=== PATIENT | female | born 1960 | race Caucasian/White ===

== ENCOUNTER 2023-02-24 18:01 | Emergency (ER) | payer OTHER ==
[2023-02-24 18:44] LABS: #Basophils 0.1 10x3/uL (0.0-0.2); #Eosinphils 0.2 10x3/uL (0.0-0.5); #Monocytes 0.6 10x3/uL (0.0-1.1); #Neutrophils 2.9 10x3/uL (1.5-8.4); %Basophils 0.7 % (0.0-2.0); %Eosinophils 2.3 % (0.0-6.0); %Lymphocytes 47.6 % (18.0-47.0); %Monocytes 8.2 % (0.0-10.0); %Neutrophils 40.9 % (40.0-75.0); Hematocrit 38.1 % (34.9-44.5); Hemoglobin 13.6 g/dL (12.0-15.5); Mean Corpuscular HGB CONC 35.7 g/dL (32.0-36.0); Mean Corpuscular Hemoglobin 31.5 pg (27.0-33.0); Mean Corpuscular Volume 88.2 fl (81.6-98.3); Mean Platelet Volume 9.4 fl (7.4-10.4); Platelet Count 253 10x3/uL (150-450); RBC Distribution Width 12.2 % (11.5-14.5); Red Blood Cell (RBC) Count 4.32 10x6/uL (3.90-5.03)
[2023-02-24 19:05] LABS: ALT (SGPT) 17 U/L (8-55); AST (SGOT) 16 U/L (5-34); Albumin 4.1 g/dL (3.4-4.8); Alkaline Phosphatase 88 U/L (40-110); Anion Gap 15 mmol/L (10-20); BUN (Urea Nitrogen) 27 mg/dL (9.8-20.1); Bilirubin, Total 0.3 mg/dL (0.2-1.2); Calc. Creatinine Clearance 0 mL/min (70-130); Calcium 8.9 mg/dL (7.8-10.44); Carbon Dioxide 23 mmol/L (23-31); Chloride 108 mmol/L (98-107); Estimated GFR 59; Globulin 2.2 g/dL (2.4-3.5); Glucose 73 mg/dL (80-115); Potassium 3.5 mmol/L (3.5-5.1); Protein, Total 6.3 g/dL (5.8-8.1); Sodium 142 mmol/L (136-145)
[2023-02-24 19:12] LABS: Troponin I Less than 0.010 ng/mL (< 0.028)
[2023-02-24] MEDS ORDERED: Dexamethasone 10 MG/ML VIAL ONE (19:43)
== END 2023-02-24 20:25 | disposition home or self-care (01) ==
LOC: CSHERS 18:01
DX: R07.9 Chest pain, unspecified (principal); J45.909 Unspecified asthma, uncomplicated; I10 Essential (primary) hypertension
CPT/HCPCS: 71045; 80053; 84484; 85025; 93005; 96374; J1100

== ENCOUNTER 2023-05-19 17:48 | Emergency (ER) | payer OTHER | END 2023-05-19 21:13 | disposition home or self-care (01) | LOC: CSHERS 17:48 | DX: L52 Erythema nodosum (principal); I10 Essential (primary) hypertension ==

== ENCOUNTER 2023-10-11 18:25 | Emergency (ER) | payer OTHER ==
[2023-10-11 19:29] LABS: Bilirubin Neg (Negative); Blood, Urine Negative (Negative); Clarity Clear (Clear); Glucose, Urine (Dipstick) Normal (Negative); Ketone, Urine Negative (Negative); Leukocyte Negative (Negative); Nitrite Negative (Negative); Protein, Urine (Dipstick) Negative (Neg-Trace); Specific Gravity, Urine 1.015 (1.005-1.030); Urobilinogen Normal mg/dL (Less than 2); pH, Urine 6.5 (5.0-9.0)
[2023-10-11 19:52] LABS: #Basophils 0.04 10x3/uL (0.0-0.2); #Eosinphils 0.14 10x3/uL (0.0-0.5); #Neutrophils 2.55 10x3/uL (1.5-8.4); %Basophils 0.7 % (0.0-2.0); %Eosinophils 2.5 % (0.0-6.0); %Lymphocytes 42.3 % (18.0-47.0); %Monocytes 8.9 % (0.0-10.0); %Neutrophils 45.4 % (40.0-75.0); ALT (SGPT) 24 U/L (8-55); AST (SGOT) 26 U/L (5-34); Albumin 3.6 g/dL (3.4-4.8); Alkaline Phosphatase 85 U/L (40-110); Anion Gap 10 mmol/L (10-20); BUN (Urea Nitrogen) 22 mg/dL (9.8-20.1); Bilirubin, Total 0.3 mg/dL (0.2-1.2); Calc. Creatinine Clearance 0 mL/min (70-130); Calcium 8.8 mg/dL (7.8-10.44); Carbon Dioxide 24 mmol/L (23-31); Chloride 110 mmol/L (98-107); Estimated GFR 60; Globulin 2.6 g/dL (2.4-3.5); Glucose 103 mg/dL (80-115); Hematocrit 37.5 % (34.9-44.5); Hemoglobin 13.4 g/dL (12.0-15.5); Mean Corpuscular HGB CONC 35.7 g/dL (32.0-36.0); Mean Corpuscular Hemoglobin 32.3 pg (27.0-33.0); Mean Corpuscular Volume 90.4 fL (81.6-98.3); Mean Platelet Volume 9.2 fL (7.4-10.4); Platelet Count 204 10x3/uL (150-450); Potassium 3.4 mmol/L (3.5-5.1); Protein, Total 6.2 g/dL (5.8-8.1); Red Blood Cell (RBC) Count 4.15 10x6/uL (3.90-5.03); Sodium 141 mmol/L (136-145); White Blood Cell (WBC) Count 5.6 10x3/uL (3.5-10.5)
[2023-10-11 19:52] LABS: CAUTI Indications for Culture Dysuria,urgency,freq; RBC/HPF None Seen HPF (0-3); WBC/HPF None Seen HPF (0-3)
[2023-10-11 19:53] LABS: Bacteria/HPF None Seen HPF (None Seen); Urine Culture Reflex No No
== END 2023-10-11 20:39 | disposition home or self-care (01) ==
LOC: CSHERS 18:25
DX: R50.9 Fever, unspecified (principal); M79.10 Myalgia, unspecified site; I10 Essential (primary) hypertension
CPT/HCPCS: 36415; 80053; 81001; 85025; 99283

== ENCOUNTER 2024-01-07 15:58 | Inpatient (IN) | payer OTHER ==
[~2024-01-07 15:58] MED LIST: Iopamidol 370 76% 100 ML VIAL ONE
[2024-01-07 16:51] LABS: #Basophils 0.04 10x3/uL (0.0-0.2); #Eosinphils 0.09 10x3/uL (0.0-0.5); #Monocytes 0.72 10x3/uL (0.0-1.1); %Basophils 0.4 % (0.0-2.0); %Eosinophils 0.9 % (0.0-6.0); %Lymphocytes 10.3 % (18.0-47.0); %Monocytes 6.8 % (0.0-10.0); %Neutrophils 81.2 % (40.0-75.0); Hematocrit 40.8 % (34.9-44.5); Mean Corpuscular HGB CONC 34.3 g/dL (32.0-36.0); Mean Corpuscular Hemoglobin 31.2 pg (27.0-33.0); Mean Corpuscular Volume 90.9 fL (81.6-98.3); Platelet Count 209 10x3/uL (150-450); RBC Distribution Width 13.3 % (11.5-14.5); Red Blood Cell (RBC) Count 4.49 10x6/uL (3.90-5.03); White Blood Cell (WBC) Count 10.6 10x3/uL (3.5-10.5)
[2024-01-07] MEDS ORDERED: Ondansetron PF 4 MG/2 ML Vial ONE ×2 (16:56→17:14)
[2024-01-07] MEDS ORDERED: Ketorolac Tromethamine 30 MG (1 mL) VIAL ONE (16:56)
[2024-01-07] MEDS ORDERED: Cefepime 2 GM VIAL ONE (16:57)
[2024-01-07 17:02] LABS: ALT (SGPT) 17 U/L (8-55); AST (SGOT) 16 U/L (5-34); Albumin 3.7 g/dL (3.4-4.8); Alkaline Phosphatase 88 U/L (40-110); Anion Gap 14 mmol/L (10-20); BUN (Urea Nitrogen) 21 mg/dL (9.8-20.1); Calc. Creatinine Clearance 0 mL/min (70-130); Calcium 9.2 mg/dL (7.8-10.44); Carbon Dioxide 23 mmol/L (23-31); Chloride 107 mmol/L (98-107); Estimated GFR 60; Globulin 2.6 g/dL (2.4-3.5); Glucose 107 mg/dL (80-115); Lipase 8 U/L (8-78); Magnesium 1.7 mg/dL (1.6-2.6); Potassium 3.5 mmol/L (3.5-5.1); Protein, Total 6.3 g/dL (5.8-8.1); Sodium 140 mmol/L (136-145)
[2024-01-07 17:08] LABS: Troponin I Less than 0.010 ng/mL (< 0.028)
[2024-01-07] MEDS ORDERED: Acetaminophen 500 MG TAB ONE (18:55)
[2024-01-07 19:01] LABS: Bilirubin Neg (Negative); Blood, Urine 10 (Negative); Clarity Clear (Clear); Glucose, Urine (Dipstick) Normal (Negative); Ketone, Urine Negative (Negative); Leukocyte 25 (Negative); Nitrite Negative (Negative); Protein, Urine (Dipstick) 15 mg/dl (Neg-Trace); Specific Gravity, Urine 1.005 (1.005-1.030); Urobilinogen Normal mg/dL (Less than 2); pH, Urine 6.5 (5.0-9.0)
[2024-01-07 19:38] LABS: CAUTI Indications for Culture Pelvic or flank pain; RBC/HPF 0-3 HPF (0-3)
[2024-01-07 19:39] LABS: Transitional Epithelial 0-3 HPF (None Seen)
[2024-01-07 19:40] LABS: Bacteria/HPF 2+ HPF (None Seen); Mucous/LPF 1+ LPF (<2+)
[2024-01-07 19:42] LABS: Urine Culture Reflex No No
[2024-01-07] MEDS ORDERED: Ondansetron ODT 4 MG TAB PO PRN (19:51)
[2024-01-07] MEDS ORDERED: Ipratropium/Albuterol 3 ML NEB NEB PRN (20:08)
[2024-01-07] MEDS ORDERED: Ventolin HFA Inhaler 60 PUFF INHALER INH PRN (20:08)
[2024-01-07] MEDS ORDERED: clonazePAM 1 MG TAB PO PRN (20:08)
[2024-01-07] MEDS: Magnesium Sulfate/D5W 1 GM in Premix 1 BAG IVPB SCH (22:40)
[2024-01-07] MEDS: rOPINIRole HCl 2 MG TAB PO SCH (22:41)
[2024-01-07] MEDS: Dicyclomine 10 MG CAP PO SCH (22:41)
[2024-01-07] MEDS: Atorvastatin Calcium 10 MG TAB PO SCH (22:41)
[2024-01-07] MEDS: Topiramate 100 MG TAB PO SCH (22:42)
[2024-01-07] MEDS: VANCOMYCIN 2 GRAM/400 ML BAG 2 GM in Premix 1 BAG IVPB SCH (22:50)
[2024-01-07 22:55] VITALS: BMI 36.0
[2024-01-08] MEDS: Acetaminophen 325 MG TAB PO PRN (02:07)
[2024-01-08] MEDS: Ondansetron PF 4 MG/2 ML Vial IVP PRN (02:07)
[2024-01-08] MEDS: NS 0.9% w/ 20 MEQ KCL 1,000 ML/1,000 ML BAG IV SCH ×2 (02:10→08:44)
[2024-01-08 04:51] LABS: #Basophils 0.04 10x3/uL (0.0-0.2); #Eosinphils 0.19 10x3/uL (0.0-0.5); #Monocytes 0.84 10x3/uL (0.0-1.1); #Neutrophils 6.99 10x3/uL (1.5-8.4); %Basophils 0.4 % (0.0-2.0); %Eosinophils 1.9 % (0.0-6.0); %Lymphocytes 19.1 % (18.0-47.0); %Monocytes 8.4 % (0.0-10.0); %Neutrophils 69.9 % (40.0-75.0); Hematocrit 34.9 % (34.9-44.5); Hemoglobin 11.5 g/dL (12.0-15.5); Mean Corpuscular Hemoglobin 30.7 pg (27.0-33.0); Mean Corpuscular Volume 93.3 fL (81.6-98.3); Mean Platelet Volume 9.3 fL (7.4-10.4); Platelet Count 185 10x3/uL (150-450); RBC Distribution Width 13.5 % (11.5-14.5); Red Blood Cell (RBC) Count 3.74 10x6/uL (3.90-5.03)
[2024-01-08] MEDS: Cefepime 2 GM in Sodium Chloride 0.9% 100 ML IVPB SCH (04:55)
[2024-01-08 05:09] LABS: BUN (Urea Nitrogen) 20 mg/dL (9.8-20.1); Calc. Creatinine Clearance 86 mL/min (70-130); Estimated GFR 64
[2024-01-08 05:26] LABS: Anion Gap 11 mmol/L (10-20); Calcium 7.9 mg/dL (7.8-10.44); Carbon Dioxide 19 mmol/L (23-31); Chloride 114 mmol/L (98-107); Glucose 92 mg/dL (80-115); Potassium 3.2 mmol/L (3.5-5.1); Sodium 141 mmol/L (136-145)
[2024-01-08 05:40] LABS: Vancomycin, Random 18.4 ug/mL (See Comment)
[2024-01-08] MEDS ORDERED: VANCOMYCIN 2 GRAM/400 ML BAG IVPB SCH (06:30)
[2024-01-08] MEDS: Mometasone 200 MCG/Formoterol 5 MCG 60 PUFF INHALER INH SCH (07:47)
[2024-01-08] MEDS: Hydrochlorothiazide 25 MG TAB PO SCH (07:49)
[2024-01-08] MEDS: Dicyclomine 10 MG CAP PO SCH (07:49)
[2024-01-08] MEDS: DULoxetine 30 MG CAP PO SCH (07:49)
[2024-01-08] MEDS: Enoxaparin 40 MG (0.4 mL) SYRINGE SC SCH (07:50)
[2024-01-08] MEDS: Potassium Chloride 20 MEQ TAB PO SCH (07:50)
[2024-01-08] MEDS: Pantoprazole DR 40 MG TAB PO SCH (07:50)
[2024-01-08] MEDS: Guaifenesin DM 100-10/5 ML UDCUP PO PRN (07:50)
[2024-01-08] MEDS: Topiramate 100 MG TAB PO SCH (07:51)
[2024-01-08] MEDS ORDERED: Ipratropium/Albuterol 3 ML NEB NEB PRN (08:23)
[2024-01-08] MEDS ORDERED: Potassium Chloride 20 MEQ TAB PO SCH ×2 (08:30→17:00)
[2024-01-08] MEDS: Vancomycin 1.5 GRAM/300 ML BAG 1.5 GM in Premix 1 BAG IVPB SCH (08:33)
[2024-01-08] MEDS ORDERED: Valsartan 80 MG TAB PO SCH (09:00)
[2024-01-08] MEDS: Doxycycline 100 MG CAP PO SCH (09:11)
[2024-01-08] MEDS: Ipratropium/Albuterol 3 ML NEB NEB SCH (13:48)
[2024-01-08] MEDS ORDERED: Guaifenesin DM 100-10/5 ML UDCUP PO PRN (18:17)
[2024-01-08] MEDS: guaiFENesin ER 600 MG TAB PO SCH (20:38)
[2024-01-08] MEDS: Atorvastatin Calcium 10 MG TAB PO SCH (20:38)
[2024-01-08] MEDS: rOPINIRole HCl 2 MG TAB PO SCH (20:39)
[2024-01-09 05:17] LABS: Anion Gap 12 mmol/L (10-20); BUN (Urea Nitrogen) 13 mg/dL (9.8-20.1); Calc. Creatinine Clearance 95 mL/min (70-130); Calcium 8.2 mg/dL (7.8-10.44); Carbon Dioxide 19 mmol/L (23-31); Chloride 116 mmol/L (98-107); Estimated GFR 72; Glucose 86 mg/dL (80-115); Magnesium 1.8 mg/dL (1.6-2.6); Potassium 3.5 mmol/L (3.5-5.1); Sodium 143 mmol/L (136-145)
[2024-01-09 05:19] LABS: #Basophils 0.03 10x3/uL (0.0-0.2); #Eosinphils 0.11 10x3/uL (0.0-0.5); #Monocytes 0.64 10x3/uL (0.0-1.1); #Neutrophils 5.23 10x3/uL (1.5-8.4); %Basophils 0.4 % (0.0-2.0); %Eosinophils 1.4 % (0.0-6.0); %Lymphocytes 21.5 % (18.0-47.0); %Monocytes 8.3 % (0.0-10.0); %Neutrophils 68.3 % (40.0-75.0); Hematocrit 32.3 % (34.9-44.5); Hemoglobin 10.9 g/dL (12.0-15.5); Mean Corpuscular HGB CONC 33.7 g/dL (32.0-36.0); Mean Corpuscular Hemoglobin 31.4 pg (27.0-33.0); Mean Corpuscular Volume 93.1 fL (81.6-98.3); Mean Platelet Volume 9.3 fL (7.4-10.4); Platelet Count 161 10x3/uL (150-450); RBC Distribution Width 13.8 % (11.5-14.5); Red Blood Cell (RBC) Count 3.47 10x6/uL (3.90-5.03); White Blood Cell (WBC) Count 7.7 10x3/uL (3.5-10.5)
[2024-01-09] MEDS: Magnesium 2 GM/50 ML(in water) 2 GM in Premix 1 BAG IVPB SCH (09:18)
[2024-01-09] MEDS: Potassium Chloride 20 MEQ TAB PO SCH (09:19)
[2024-01-09 11:40] VITALS: BP 103/66; TEMP 98.2
== END 2024-01-09 13:25 | disposition home or self-care (01) | DRG 871 ==
LOC: CSHERS 15:58 → CSHTELE 19:11 → OBSVTOIN 01-08 08:18
PROVIDERS: ADMIT Family Medicine; ATTEND Internal Medicine
DX: A41.50 Gram-negative sepsis, unspecified (principal); J18.9 Pneumonia, unspecified organism; J45.901 Unspecified asthma with (acute) exacerbation; I10 Essential (primary) hypertension; E83.42 Hypomagnesemia; E87.6 Hypokalemia; E78.5 Hyperlipidemia, unspecified; F41.9 Anxiety disorder, unspecified; E66.9 Obesity, unspecified; Z68.36 Body mass index [BMI] 36.0-36.9, adult; K21.9 Gastro-esophageal reflux disease without esophagitis; Z90.49 Acquired absence of other specified parts of digestive tract; Z90.89 Acquired absence of other organs; E86.9 Volume depletion, unspecified; G43.909 Migraine, unspecified, not intractable, without status migrainosus; F32.A Depression, unspecified; Z79.899 Other long term (current) drug therapy
CPT/HCPCS: 36415; 71045; 71275; 74177; 80048; 80053; 80202; 81001; 82550; 83605; 83690; 83735; 84145; 84484; 85025; 87040; 87081; 87428; 93005; 94640; 94664; 96365; 96366; 96367; 96372; 96375; 96376; G0378; J0692; J1650; J1885; J2405; J3370; J3475; J3480; J7620; Q9967

== ENCOUNTER 2024-04-04 00:10 | Emergency (ER) | payer MEDICARE, OTHER, SELFPAY ==
[2024-04-04] MEDS ORDERED: methylPREDNISolone Sod Succ/PF 125 MG/2 ML VIAL ONE (00:29)
[2024-04-04] MEDS ORDERED: Ipratropium/Albuterol 3 ML NEB ONE (00:42)
[2024-04-04 01:08] LABS: #Basophils 0.03 10x3/uL (0.0-0.2); #Eosinophils 0.16 10x3/uL (0.0-0.5); #Monocytes 0.42 10x3/uL (0.0-1.1); #Neutrophils 2.95 10x3/uL (1.5-8.4); %Basophils 0.5 % (0.0-2.0); %Eosinophils 2.7 % (0.0-6.0); %Lymphocytes 39.1 % (18.0-47.0); %Monocytes 7.2 % (0.0-10.0); %Neutrophils 50.3 % (40.0-75.0); Hematocrit 37.1 % (34.9-44.5); Hemoglobin 12.6 g/dL (12.0-15.5); Mean Corpuscular Hemoglobin 31.3 pg (27.0-33.0); Mean Corpuscular Volume 92.3 fL (81.6-98.3); Mean Platelet Volume 9.3 fL (7.4-10.4); Platelet Count 218 10x3/uL (150-450); RBC Distribution Width 13.3 % (11.5-14.5); Red Blood Cell (RBC) Count 4.02 10x6/uL (3.90-5.03); White Blood Cell (WBC) Count 5.9 10x3/uL (3.5-10.5)
[2024-04-04 01:17] LABS: ALT (SGPT) 25 U/L (8-55); AST (SGOT) 19 U/L (5-34); Albumin 3.7 g/dL (3.4-4.8); Alkaline Phosphatase 91 U/L (40-110); Anion Gap 14 mmol/L (10-20); BUN (Urea Nitrogen) 19 mg/dL (9.8-20.1); Bilirubin, Total 0.2 mg/dL (0.2-1.2); Calc. Creatinine Clearance 0 mL/min (70-130); Calcium 8.8 mg/dL (7.8-10.44); Carbon Dioxide 19 mmol/L (23-31); Chloride 115 mmol/L (98-107); Estimated GFR 45; Globulin 2.7 g/dL (2.4-3.5); Glucose 111 mg/dL (80-115); Potassium 3.8 mmol/L (3.5-5.1); Protein, Total 6.4 g/dL (5.8-8.1); Sodium 144 mmol/L (136-145)
[2024-04-04 01:24] LABS: Troponin I Less than 0.010 ng/mL (< 0.028)
== END 2024-04-04 02:45 | disposition home or self-care (01) ==
LOC: CSHERS 00:10
DX: J18.9 Pneumonia, unspecified organism (principal); R06.02 Shortness of breath; I10 Essential (primary) hypertension; E78.5 Hyperlipidemia, unspecified; J45.909 Unspecified asthma, uncomplicated; Z79.899 Other long term (current) drug therapy; Z79.51 Long term (current) use of inhaled steroids
CPT/HCPCS: 71045; 80053; 83880; 84145; 84484; 85025; 87428; 93005; 94640; J2919; 96374; J7620

== ENCOUNTER 2024-11-14 22:12 | Emergency (ER) | payer OTHER, MEDICAID ==
[2024-11-14] MEDS ORDERED: Dexamethasone 10 MG/ML VIAL ONE (22:49)
[2024-11-14] MEDS ORDERED: Ketorolac Tromethamine 30 MG (1 mL) VIAL ONE (22:49)
== END 2024-11-14 23:56 | disposition home or self-care (01) ==
LOC: CSHERS 22:12
DX: J20.9 Acute bronchitis, unspecified (principal)
CPT/HCPCS: 71045; J1100; J1885

== ENCOUNTER 2025-02-03 09:11 | Outpatient (CLI) | payer OTHER ==
[2025-02-03 10:26] LABS: Estimated GFR - POC 55.0
== END 2025-02-03 09:12 | disposition home or self-care (01) ==
LOC: CSHCT 09:11
PROVIDERS: ATTEND Student in an Organized Health Care Education/Training Program
DX: R10.A2 Flank pain, left side (principal); N20.0 Calculus of kidney
CPT/HCPCS: 74178; 82565